=== PATIENT | female | born 1955 | race Caucasian/White ===

== ENCOUNTER 2017-02-14 13:47 | Emergency (ER) | payer BC ==
--- NOTE | ~2017-02-14 | CR210 ---
[facility]. [facility] A Service of [facility] & [facility] RADIOLOGY TEXT RESULTS PATIENT: FERDINAND BOWEN LOCATION: SED : 55 UNIT #: [id number] AGE: [address]: Daphnie Lantigua SEX: F ORDER DR: [id number] [address] [address] [id number] MR#: [id number] Acc #: [id number] NAME: FERDINAND BOWEN : 1955 SEX: F STUDY DATE/TIME: 02/14/2017 14:17 UNIT: SED ROOM: STUDY DESCRIPTION: CR Ribs Uni 2 View W PA Ch Lt Attending Physician: Daphnie Lantigua Pa-C Ordering Physician: Daphnie Lantigua Pa-C Primary Care Physician: Lila Pimentel A.P.R.N. MEDICAL IMAGING REPORT This report is preliminary unless electronic signature is present. EXAM Left ribs 3 views HISTORY Left anterior rib pain after injury yesterday. FINDINGS 3 views of the left ribs demonstrate no fracture. No pneumothorax or pleural effusion. Minimal atelectasis in the left base. IMPRESSION Negative left ribs Dictated by... Randy Snider M.D. THIS IS AN ELECTRONICALLY VERIFIED REPORT Randy Snider M.D. at 02/15/2017 2:34 PM DFL/stephanie TD: 02/15/2017 01:11 JOB #: [id number] MEDICAL IMAGING REPORT Page 1 of 1
[~2017-02-14 13:47] MED LIST: ALENDRONATE SOD70 MG PO; ASPIRIN81 M1 PO; CARAFATE1 G PO; FAMOTIDINE20 MG PO; FLEXERIL10 MG PO; MOBIC15 MG PO; PREMARIN PO; PRISTIQ50 MG PO; SYNTHROID175 MCG PO; TYLENOL #3 PO; ZESTRIL5 MG PO
[2017-02-14] MEDS ORDERED: CHOLESTEROL MED (14:06)
[2017-02-14] MEDS ORDERED: TENORMIN25 MG (14:06)
== END 2017-02-14 14:47 | disposition home or self-care (01) ==
LOC: SED 13:47
DX: S29.011A Strain of muscle and tendon of front wall of thorax, initial encounter (principal); I10 Essential (primary) hypertension; F32.9 Major depressive disorder, single episode, unspecified; Z90.49 Acquired absence of other specified parts of digestive tract; Z90.710 Acquired absence of both cervix and uterus; X50.1XXA Overexertion from prolonged static or awkward postures, initial encounter; Y92.69 Other specified industrial and construction area as the place of occurrence of the external cause
CPT/HCPCS: 71100; 99283